=== PATIENT | female | born 2000 | race African-American/Black ===

== ENCOUNTER 2022-03-02 12:01 | Emergency (ER) | payer BC, SELFPAY ==
--- NOTE | ~2022-03-02 | XR_ITS ---
EXAMINATION: XR sacrum coccyx min 2V EXAM DATE: 03/02/2022 12:24 INDICATION: FALL x 2 onto wood floor while skating;last fall 5 days ago. TECHNIQUE: Frontal, inlet, lateral projections of the sacrum and coccyx. There is no prior study fo r comparison. FINDINGS: Sacralized L5 segment. There are no acute sacrococcygeal fractures or dislocations identif ied. There is no subcutaneous gas. The soft tissue is unremarkable. There are no radiopaque forei gn bodies. IMPRESSION: No acute osseous findings. Reviewed, dictated and finalized at location A. IMPRESSION: No acute osseous findings.
[2022-03-02 12:10] VITALS: BP 120/67; PULSE 78; RESP 12; TEMP 36.3; O2SAT 100
--- NOTE | 2022-03-02 12:15 | ED.GENADULT ---
HPI - General Adult General Chief complaint: Back Pain/Injury Stated complaint: Tailbone pain Time Seen by Provider: 03/02/22 12:15 Source: patient, RN notes reviewed and old records reviewed Mode of arrival: ambulatory Limitations: no limitations History of Present Illness HPI narrative: 21 year old female who presents to [facility] care with complaints of tail bone discomfort which started about a month ago from a fall while skating onto [place]. She states that she fell again on Sunday while skating and pain has increased with muscle spasms and pain into her right hip.Patient states that pain is sharp at times to the right hip area, denies any radiation of pain down her legs or any tingling or numbness. Patient denies any difficulty passing her urine or stools, denies any saddle paraesthesia. She states that she tried Ibuprofen and Naprosyn with very little pain decrease but has been taking some Aspirin which has given her a little in discomfort. Patient states that she notes some spasms sensations in her lower back hip area. Patient states that position changes aggravates her pain. MD complaint: tailbone and right hip discomfort Exacerbating factors: movement and other (changing positions) Treatments prior to arrival: aspirin Related Data Allergies Allergy/AdvReac Type Severity Reaction Status Date / Time Penicillins Allergy Rash Verified 03/02/22 12:11 Review of Systems Review of Systems: CONSTITUTIONAL: Denies fever, chills, or sweats. EYES: Denies visual changes, redness, or discharge. ENT: Denies rhinorrhea, congestion, sore throat, or otalgia. CARDIOVASCULAR: Denies chest pain, palpitations, or edema. RESPIRATORY: Denies cough or dyspnea. GASTROINTESTINAL: Denies abdominal pain, nausea, vomiting, or diarrhea. GENITOURINARY: Denies dysuria or hematuria. SKIN: Denies rash or itching. MUSCULOSKELETAL: Positive for coccyx back pain and pain into right hip with spasms, joint pain, or myalgia. NEUROLOGIC: Denies headache, numbness, or weakness. PSYCHIATRIC: Denies anxiety or depression. All systems reviewed & are unremarkable except as noted in HPI and below PMFSH Past Medical History Medical History (Updated 03/02/22 @ 12:48 by Stacy Montes NP) No pertinent past medical history Surgical History Surgical History (Updated 03/02/22 @ 12:42 by Stacy Montes NP) No history of previous surgery Family History Family History (Updated 03/02/22 @ 12:42 by Stacy Montes NP) Mother Hypertension Social History Social History (Updated 03/02/22 @ 12:42 by Stacy Montes NP) Smoking status: Never smoker Alcohol intake: never Substance use: never Living arrangements: dorm student housing Occupation/Education: student Gender identity (if verbalized by the patient): Female Comments At time of signature, agree with nursing past medical, surgical, social and family history. There is no relevant family history pertinent to the presenting complaint Exam Narrative: GENERAL: Well-appearing, well-nourished, and in no acute distress. HEAD: Normocephalic, atraumatic. EYES: PERRLA and EOMI. ENT: Nares clear, no rhinorrhea or epistaxis. Mucous membranes moist.TM's normal with good light reflex, throat pink with no lesions or exudates or tonsil enlargement. NECK: Supple. no lymphadenopathy CHEST: Clear to auscultation. No respiratory distress.SAO2 100% on room air, respirations even and nonlabored. HEART: Regular rate and rhythm. No murmur heard. Normal peripheral pulses. ABDOMEN: Soft, nontender, nondistended, normal active bowel sounds. EXTREMITIES: Normal range of motion. No edema. Pain to coccyx and right hip region from falls X2 from standing position while skating. Patient denies any radiation of pain down legs, no tingling or numbness to extremities with strong pedal and posterior tibial pulses, negative straight leg test bilaterally. Patient report increase pain with position changes especially fr
== END 2022-03-02 12:55 | disposition home or self-care (01) ==
PROVIDERS: Emergency Provider Registered Nurse
DX: M53.3 Sacrococcygeal disorders, not elsewhere classified (principal); M25.551 Pain in right hip
CPT/HCPCS: 72220; 99213; G0463